=== PATIENT | male | born 1990 | race Caucasian/White ===

== ENCOUNTER 2016-06-27 09:04 | Emergency (ER) | payer OTHER ==
[2016-06-27 09:10] VITALS: O2SAT 97
[2016-06-27] MEDS ORDERED: DEXAMETHASONE 10 MG/ML VIAL IVP ONE (09:34)
[2016-06-27] MEDS ORDERED: KETOROLAC 30 MG/1 ML SDV IVP ONE (09:34)
[2016-06-27] MEDS ORDERED: NS 1,000 ML IV ONE (09:34)
--- NOTE | 2016-06-27 09:38 | EDPHY ---
H & P Stated Complaint: R PERITONSILLAR ABCESS HPI/ROS: CHIEF COMPLAINT: swelling of the throat, sore throat HISTORY OF PRESENT ILLNESS: patient has swelling of the throat on the right side that started yesterday. He did have 3 days of sore throat prior to this. Once the swelling started the pain as minimize. Significant swelling with hoarseness. No chest pain, cough or shortness of breath. No fever at this time , but did have chills earlier this week. Difficulty swallowing tolerating liquids or solids. No headache. No nausea or vomiting. Symptoms are worse when he attempts to take by mouth. They improve when he is NPO. He has been NPO since last night. No other associated complaints or modifying factors. No history of recurrent strep. No previous peritonsillar abscess. REVIEW OF SYSTEMS: Ten systems reviewed and are negative unless otherwise noted in the HPI EXAMINATION General Appearance: Alert, no distress . Hot potato voice Head: normocephalic, atraumatic Eyes: Pupils equal and round, no conjunctival pallor or injection ENT, Mouth: Mucous membranes moist. Uvula is deviated to the left. There is significant erythema, edema and evidence of peritonsillar abscess on the right. The airway remains patent but there is significant swelling. Floor of the mouth is normal. No drooling. Neck: Normal inspection, supple, non-tender . Anterior cervical lymphadenopathy. Respiratory: Lungs are clear to auscultation . No wheezing, rhonchi or crackles. Cardiovascular: Regular rate and rhythm . No murmur. Pulses intact distally. Gastrointestinal: Abdomen is soft and nontender Back: non-tender, no bony abnormalities Neurological: A&O, nonfocal, normal gait Skin: Warm and dry, no rash Extremities: Nontender, no pedal edema Psychiatric: Mood and affect normal DIFFERENTIAL DIAGNOSES: Including but not limited to Peritonsillar abscess, strep pharyngitis, viral pharyngitis, pharyngeal abscess MDM: 9:35 a.m. right-sided peritonsillar abscess. The airway is patent but there is deviation of the uvula to the left. His vital signs are stable. He is in no acute distress. He is managing his secretions. I have put a page out for ENT to have them evaluate and drain the abscess. Decadron, Toradol, IV fluids have been ordered. 9:45 a.m. I have discussed the case with the on-call Ear, Nose and Throat physician Dr. Moon. He says that he would be happy to take care of the abscess. He asked that we send the patient down to his office and he will see him immediately. Patient is comfortable with this plan. He will be discharge with instructions to follow up with Dr. Moon immediately. He is in stable condition with no compromise of his airway without any assistance. SUPERVISION: Patient was evaluated in conjunction with the supervising physician. Please see their note for details. Source: Patient Exam Limitations: No limitations - Personal History Current Tetanus/Diphtheria Vaccine: Unsure - Medical/Surgical History Hx Asthma: No Hx Chronic Respiratory Disease: No Hx Diabetes: No Hx Cardiac Disease: No Hx Renal Disease: No Hx Cirrhosis: No Hx Alcoholism: No Hx HIV/AIDS: No Hx Splenectomy or Spleen Trauma: No Other PMH: DENIES - Social History Smoking Status: Never smoked Constitutional: Initial Vital Signs Temperature (C) 98.4 F 06/27/16 09:08 Heart Rate 96 06/27/16 09:08 Respiratory Rate 18 06/27/16 09:08 Blood Pressure 147/85 H 06/27/16 09:08 O2 Sat (%) 97 06/27/16 09:08 O2 Delivery Mode Room Air Allergies/Adverse Reactions: No Known Allergies Allergy (Unverified 06/27/16 09:07) Home Medications: Medication Instructions Recorded NK [No Known Home Meds] 06/27/16 Medical Decision Making - Data Points Medications Given: Discontinued Medications Dexamethasone (Decadron Injection) 10 mg IVP EDNOW ONE Stop: 06/27/16 09:35 Last Admin: 06/27/16 09:56 Dose: 10 mg Sodium Chloride (Ns) 1,000 mls @ 0 mls/hr IV ONCE ONE PRN Reason: Wide Open Stop: 06/27/16 09:35 Last Admin: 06/27/16 09:37 Dose: 1,000 mls Ketorolac Tromethamine (Toradol) 30 mg IVP EDNOW ONE Stop: 06/27/16 09:35 Last Admin: 06/27/16 09:56 Dose: 30 mg Departure - Departure Disposition: Home, Routine, Self-Care Clinical Impression: Peritonsillar abscess Acute pharyngitis Qualifiers: Pharyngitis/tonsillitis etiology: unspecified etiology Qualified Code(s): J02.9 - Acute pharyngitis, unspecified Condition: Good Instructions: Peritonsillar Abscess (ED) Additional Instructions: Follow-up with Dr. Moon immediately upon discharge from the ER. Return to ER for any return of the swelling or difficulty swallowing Referrals: NONE *PRIMARY CARE P,. [Primary Care Provider] - As per Instructions Cinda Moon MD [Medical Doctor] - As per Instructions
[2016-06-27 10:14] VITALS: BP 135/70; PULSE 87; RESP 16; TEMP 97.5
[2016-06-27] MEDS ORDERED: CLINDAMYCIN 900 MG/DEXTROSE 50 ML IV ONE (10:16)
== END 2016-06-27 11:30 | disposition home or self-care (01) ==
DX: J36 Peritonsillar abscess (principal)
CPT/HCPCS: 96365; J1885